=== PATIENT | male | born 1960 | race Caucasian/White ===

== ENCOUNTER 2017-12-21 18:36 | Emergency (ER) | payer OTHER ==
[~2017-12-21] VITALS: Ht 182.9 cm; Wt 95.7 kg
[2017-12-21 19:03] LABS: BASOPHIL (%) 0.3 % (0-1); EOSINOPHIL (%) 0.7 % (0-5); HEMOGLOBIN 14.4 G/DL (12.5-16.6); IMMATURE GRANULOCYTE (%) 0.3 % (0.0-0.7); LYMPHOCYTE (%) 12.4 % (15-42); LYMPHOCYTE COUNT 0.7 K/uL (1.0-2.8); MCH 30.4 PG (29.0-34.0); MCHC 35.1 G/DL (30.0-36.0); MCV 86.7 FL (86-99); MONOCYTE (%) 7.7 % (3-12); MONOCYTE COUNT 0.5 K/uL (0-0.8); NEUTROPHIL (%) 78.6 % (45-76); NEUTROPHIL COUNT 4.7 K/uL (1.8-6.4); PLATELET COUNT 199 K/uL (156-360); RBC DIS.WIDTH-CV 12.1 % (11.8-14.6); RBC DIS.WIDTH-SD 38.5 % (39-53); RED BLOOD COUNT 4.73 M/uL (4.00-5.50)
[2017-12-21 19:13] LABS: ALBUMIN 4.1 g/dL (3.2-4.8); CHLORIDE 108 mEq/L (99-109); POTASSIUM 3.8 mEq/L (3.7-5.4); SODIUM 141 mEq/L (136-147)
[2017-12-21 19:16] LABS: GLUCOSE 107 mg/dL (70-99); TOTAL PROTEIN 6.7 g/dL (6.4-8.3)
[2017-12-21 19:18] LABS: TOTAL BILIRUBIN 0.7 mg/dL (0.0-1.0)
[2017-12-21 19:19] LABS: ALKALINE PHOSPHATASE 53 IU/L (3-129); CREATININE 1.1 mg/dL (0.6-1.3); GFR ESTIMATE (CALCULATED) > 59 mL/min/ (58.99-99999)
[2017-12-21 19:20] LABS: UREA NITROGEN (BUN) 21 mg/dL (9-23)
[2017-12-21 19:21] LABS: AST (GOT) 19 IU/L (2-34)
[2017-12-21 19:22] LABS: ALT (GPT) 19 IU/L (3-49)
[2017-12-21 19:31] LABS: APPEARANCE CLEAR ((CLEAR)); BILIRUBIN NEGATIVE; BLOOD LARGE; COLOR YELLOW ((YELLOW)); GLUCOSE (STRIP) NEGATIVE; KETONES 5; LEUKOCYTES NEGATIVE; NITRITE NEGATIVE; PROTEIN (STRIP) 30; SPECIFIC GRAVITY 1.015 (1.000-1.030); UROBILINOGEN 0.2 MG/DL (0.2-1.0)
[2017-12-21 20:03] LABS: BACTERIA RARE /HPF; EPITHELIAL CELLS RARE /HPF; HYALINE CASTS 0-5 /LPF; MUCUS TRACE /LPF; RED BLOOD CELLS TNTC /HPF (0-5); UCUL ADDED? YES; WHITE BLOOD CELLS 0-5 /HPF (0-5)
[2017-12-21] MEDS ORDERED: ZOFRAN ODT4 MG PO (21:31)
[2017-12-21] MEDS ORDERED: PERCOCET 5/31 TABLET PO (21:31)
[2017-12-21] MEDS ORDERED: MOTRIN600 MG PO (21:31)
[2017-12-21] MEDS ORDERED: FLOMAX0.4 MG PO (21:31)
[2017-12-21 21:46] VITALS: BP 156/89
== END 2017-12-21 21:47 | disposition home or self-care (01) ==
LOC: EME 18:36
PROVIDERS: Emergency Medicine
DX: N13.2 Hydronephrosis with renal and ureteral calculous obstruction (principal); R93.49 Abnormal radiologic findings on diagnostic imaging of other urinary organs; Z98.890 Other specified postprocedural states
CPT/HCPCS: 74176; 80053; 81003; 85025; 87086; 99281; 99285; J1885; J2405; J3010; J7040